=== PATIENT | male | born 1945 | race Caucasian/White ===

== ENCOUNTER 2019-12-29 06:15 | Emergency (ER) | payer OTHER, BC ==
[2019-12-29 06:29] VITALS: BP 171/80; PULSE 90; TEMP 98.3; BMI 21.9
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
== END 2019-12-29 10:14 | disposition home or self-care (01) ==
LOC: JER 06:15
DX: S49.91XA Unspecified injury of right shoulder and upper arm, initial encounter (principal); S42.034A Nondisplaced fracture of lateral end of right clavicle, initial encounter for closed fracture
CPT/HCPCS: 70450-TC; 73030-TC-RT-FY; 99284-25

== ENCOUNTER 2020-01-04 13:33 | Emergency (ER) | payer OTHER, BC ==
[2020-01-04 13:40] VITALS: BP 142/69; PULSE 90; TEMP 98.4; BMI 22.8
--- NOTE | 2020-01-04 14:03 | PDOC ---
History of Present Illness - General Chief Complaint: Ear Problem Stated Complaint: EAR PROBLEM Time Seen by Provider: 01/04/20 13:53 History Source: Patient Exam Limitations: No Limitations - History of Present Illness Initial Comments: 01/04/20 14:04 HISTORY OF PRESENT ILLNESS: 74-year-old male presents emergency department for evaluation of insect in his left ear. Patient reports approximately 30 minutes ago he felt an insect fly into his urine is had movement and buzzing in his ear until approximately 5 minutes prior to arrival. Patient denies any fevers, chills, hearing loss, dizziness, discharge or drainage from ears. No recent travel or sick contacts. PAST MEDICAL HISTORY: hypertension, CAD SURGICAL HISTORY: Denies ALLERGIES: Penicillin REVIEW OF SYSTEMS General/Constitutional: Denies fever or chills. Denies weakness, weight change. HEENT: See HPI Cardiovascular: Denies chest pain or shortness of breath. Respiratory: Denies cough, wheezing, or hemoptysis. Gastrointestinal: Denies nausea, vomiting, diarrhea or constipation. Denies rectal bleeding. Genitourinary: Denies dysuria, frequency, or change in urination. Musculoskeletal: Denies joint or muscle swelling or pain. Denies neck or back pain. Skin and breasts: Denies rash or easy bruising. Neurologic: Denies headache, vertigo, loss of consciousness, or loss of sensation. Psychiatric: Denies depression or anxiety. Endocrine: Denies increased thirst. Denies abnormal weight change. Hematologic/Lymphatic: Denies anemia, easy bleeding, or history of blood clots. Allergic/Immunologic: Denies hives or skin allergy. Denies latex allergy. PHYSICAL EXAM General Appearance: Well-appearing, appropriately dressed. No apparent distress, no intoxication. HEENT: EOMI, PERRLA, normal ENT inspection, normal voice, TMs normal, pharynx normal. No conjunctival pallor. No photophobia, scleral icterus. Cerumen in left external auditory canal is obstructing view. Neck: Supple. Trachea midline. No tenderness, rigidity, carotid bruit, stridor, lymphadenopathy, or thyromegaly. Respiratory/Chest: Lungs CTAB. No shortness of breath, chest tenderness, respiratory distress, accessory muscle use. No crackles, rales, rhonchi, stridor, wheezing, dullness Neurologic: sap data analyst II-XII intact. Fully oriented, alert. Appropriate mood/affect. Motor strength 5/5. No appreciable EOM palsy, facial droop or sensory deficit. 01/04/20 14:19 Past History - Medical History Allergies/Adverse Reactions: Allergies Allergy/AdvReac Type Severity Reaction Status Date / Time Penicillins Allergy Hives Verified 01/04/20 13:37 Home Medications: Ambulatory Orders Aspirin 81 mg PO DAILY 12/29/19 Clopidogrel Bisulfate [Plavix -] 75 mg PO DAILY 12/29/19 Hydralazine HCl 25 mg PO DAILY 12/29/19 Metoprolol Succinate [Toprol Xl] 50 mg PO BID 12/29/19 Rosuvastatin [Crestor -] 20 mg PO HS 12/29/19 Cardiac Disorders: Yes COPD: No HTN: Yes Hypercholesterolemia: Yes - Psycho-Social/Smoking History Smoking History: Never smoked Have you smoked in the past 12 months: No Number of Cigarettes Smoked Daily: 5 If you are a former smoker, when did you quit?: 2003 - Substance Abuse Hx (Audit-C & DAST Scrn) How often the patient has a drink containing alcohol: Never Score: In Men: 4 or > Positive; In Women: 3 or > Positive: 0 Screen Result (Pos requires Nsg. Audit-10AR): Negative In the last yr the pt used illegal drug/Rx for NonMed reason: No Score: Yes response is considered Positive: 0 Screen Result (Positive result requires Nsg. DAST-10): Negative *Physical Exam - Vital Signs Last Vital Signs Temp Pulse Resp BP Pulse Ox 98.4 F 90 16 142/69 100 01/04/20 13:37 01/04/20 13:37 01/04/20 13:37 01/04/20 13:37 01/04/20 13:37 Medical Decision Making - Medical Decision Making 01/04/20 14:03 A/P: 74-year-old male with insect in left ear Initial left auditory canal obscured by wax Earwax removed using curette. Exam is unremarkable after earwax removal Discharge home Portions of this note have been documented using voice recognition software. As a result, errors may occur in the school bus aide process. Effort has been made to correct all grammatical and school bus aide error, but some may have been missed which may produce sporadic inaccurate school bus aide or nonsensical phrases. Discharge - Discharge Information Problems reviewed: Yes Clinical Impression/Diagnosis: Foreign body in left ear, initial encounter Condition: Stable Disposition: HOME - Admission No - Follow up/Referral Referrals: Jl Rueda MD [Primary Care Provider] - - Patient Discharge Instructions Additional Instructions: Never insert anything into your ear smaller than your elbow. Your emergency department visit is incomplete to you follow-up with your doctor. Return to the emergency department for any new or worsening symptoms. Thank you very much for choosing us to provide your emergent healthcare needs - Post Discharge Activity
== END 2020-01-04 14:10 | disposition home or self-care (01) ==
LOC: JERFT 13:33
DX: T16.2XXA Foreign body in left ear, initial encounter (principal)
CPT/HCPCS: 99282-25

== ENCOUNTER 2021-04-01 06:02 | Emergency (ER) | payer OTHER, BC ==
[2021-04-01 07:47] VITALS: BP 160/74; PULSE 82; TEMP 98.6; BMI 22.1
[2021-04-01] MEDS ORDERED: ACETAMINOPHEN WITH CODEINE 300MG/30MG TABLET PO ONE (08:27)
[2021-04-01] MEDS ORDERED: ACETAMINOPHEN WITH CODEINE 300MG/30MG TABLET ONE (08:43)
== END 2021-04-01 09:51 | disposition left against medical advice (07) ==
LOC: JER 06:02
DX: S22.42XA Multiple fractures of ribs, left side, initial encounter for closed fracture (principal); W01.0XXA Fall on same level from slipping, tripping and stumbling without subsequent striking against object, initial encounter
CPT/HCPCS: 71046-TC-FY; 71101-TC-LT-FY; 99284-25